=== PATIENT | female | born 1955 | race Caucasian/White ===

== ENCOUNTER → 2017-03-27 | Outpatient (CLI) | payer OTHER ==
[~2017-03-27] MED LIST: ARTIFICIAL TEA1 EACH OPHTHALMIC; BENADRYL25 MG PO; BENZTROPINE MES1 MG PO; CEFPODOXIME PR200 M1 PO; COLACE100 MG PO; ESKALITH300 MG PO; FERRIC X-150150 MG PO; FISH OIL 1,001000 M2 PO; FLUPHENAZINE 5 M5 MG PO; KAPSPARGO SPRIN25 MG PO; MILK OF MA2400 MG/10 PO; NITROFURANTOIN100 MG PO; PEPTO-BISM262 MG/15 PO; PROTONIX40 M1 PO; TOPROL XL25 MG PO; TYLENOL325 M1 PO; VITAMIN D3400 UNIT PO
== END ==
LOC: M.CRD 03-25 08:00 → M.RAD 13:18 → M.NUC 14:00
DX: M95.4 Acquired deformity of chest and rib (principal)

== ENCOUNTER → 2017-04-03 | Outpatient (CLI) | payer OTHER ==
--- NOTE | 2017-04-03 16:23 | CARDNUC ---
[place] [address] CARDIAC NUCLEAR IMAGING REPORT Name: SCHNEIDERMERY POLANCO Room: [facility]#: [id number] Admission: 04/03/17 Attend Phys: Jerardo Maynard, Discharge: Date of : 53 Date of Service: 04/03/17 1623 Report #: [id number] THIS REPORT FOR: //name// APPROVED REPORT Exam: Nuclear Stress Test Indication: Dyspnea, blood clots in leg Patient Location: Out-Patient Stress Tech: Gertrude Greco Stress Nurse: Becki Anaya RN Ht: 5 ft 4 in Wt: 176 lbs BSA: 1.85 m2 BMI: 30.20 Medical History Medical History: htn, paranoid schizophrenia, gerd, arf, breast cancer Medications: metoprolol,xaralto, Allergies: latex, tegretol Stress Test Details Stress Test: Pharmacologic stress testing performed using 0.4 mg of regadenoson per 5 mL given IV over 10 seconds. Reason for pharmacologic stress test: physical limitation. HR Resting HR: 91 bpm Max Heart Rate (APMHR): 158 bpm Max HR Achieved: 108 bpm Target HR (85% APMHR): 134 bpm % of APMHR: 68 Recovery HR: 118 bpm HR response to stress: Normal HR response to stress BP Resting BP: 144/113 mmHg Max BP: 147/68 mmHg BP response to stress: Normal blood pressure response to stress. ECG Resting ECG: Sinus Rhythm Stress ECG: Sinus Rhythm ST Change: None Recovery ECG: Sinus Rhythm Recovery ST Change: [place] [address] CARDIAC NUCLEAR IMAGING REPORT Name: MERY SCHNEIDER Room: [facility]#: [id number] Admission: 04/03/17 Attend Phys: Jerardo Maynard, Discharge: Date of : 53 Date of Service: 04/03/17 1623 Report #: [id number] Clinical Reason for Termination: Completed protocol Stress Symptoms: Dyspnea Exercise duration: 0 min sec Exercise capacity: 1 METs Functional Aerobic Impairment 69% Nurse Comments pt tolerated well Stress ECG Conclusion negative for ischemia NM EXAM: Myocardial Perfusion REST/STRESS Imaging Protocol: Rest Tc-99m/Stress Tc-99m 1 day Resting Data Rest SPECT myocardial perfusion imaging was performed in supine position 45 minutes following the intravenous injection of 11.1 mCi of Tc-99m Sestamibi. Time of rest injection: 1250 Date: 04/03/2017 The images were gated to evaluate regional wall motion and calculate left ventricular ejection fraction. Administration Route: IV Administration Site: Right AC Pharmacologic Stress Pharmacologic stress test was performed by injecting Regadenoson 0.4 mg IV push followed by the intravenous injection of 36 mCi of Tc-99m Sestamibi. Time of stress injection: 1420 Date: 04/03/2017 Administration Route: IV Administration Site: Right AC Gated Stress SPECT was performed 45 minutes after stress injection. The images were gated to evaluate regional wall motion and calculate left ventricular ejection fraction. Study Quality Study: Fair Artifact: Moderate Motion artifact,gut uptake artifact Study Data At rest, the left ventricular ejection fraction was >65%.. Post stress, the left ventricular ejection was >65%.. SSS: 2 [place] [address] CARDIAC NUCLEAR IMAGING REPORT Name: MERY SCHNEIDER Room: [facility]#: [id number] Admission: 04/03/17 Attend Phys: Jerardo Maynard, Discharge: Date of : 53 Date of Service: 04/03/17 1623 Report #: [id number] SRS: 5 SDS: -3 there are 2 small defects seen on rotating images likely extratraneous to patient.seen only on stress dataset. Perfusion There is a uniform uptake of tracer on the stress data sent, resting images show a lot of artifact due to gut uptake and motion artifact. No reversible defects are seen Images were reviewed using [employer]. Wall Motion There is normal thickening in all segments Nuclear Conclusion ECG Findings: negative for ischemia Clinical Findings: negative for ischemia Nuclear Findings: negative for ischemia Exercise Capacity: not assessed Left Ventricular Function: normal Risk Study: low Although the study has artifact, features of ischemia are not present <Conclusion> negative for ischemia <ELECTRONICALLY SIGNED> By: Selwyn Vargas MD, FACC 04/03/17 1623 162 162 Selwyn Vargas MD, FACC /INF
--- NOTE | 2017-04-03 17:12 | 2DMMODE ---
[place] [address] 2 D/M-MODE ECHOCARDIOGRAM Name: MERY SCHNEIDER Room: [facility]#: [id number] Admission: 04/03/17 Attend Phys: Jerardo Maynard, Discharge: Date of : 53 Date of Service: 04/03/17 1712 Report #: [id number] THIS REPORT FOR: //name// APPROVED REPORT Study performed: 04/03/2017 15:35:12 EXAM: Comprehensive 2D, Doppler, and color-flow Echocardiogram Patient Location: Out-Patient Status: routine BSA: 1.85 HR: 94 bpm BP: 159/62 mmHg Rhythm: NSR Other Information Study Quality: Good Indications Dyspnea 2D Dimensions LVEF(%): 84.61 (>50%) IVSd: 10.23 (7-11mm) LVOT Diam: 19.78 (18-24mm) LVDd: 37.99 mm PWd: 8.77 (7-11mm) Ascending Ao: 29.82 (22-36mm) LVDs: 17.86 (25-40mm) Aortic Root: 26.82 mm Garcia's LVEF: 84.61 % Volumes Left Atrial Volume (Systole) LA ESV Index: 15.20 mL/m2 Aortic Valve AoV Peak Shaan.: 1.46 m/s AO Peak Gr.: 8.53 mmHg LVOT Max P.30 mmHg AO Mean Gr.: 4.77 mmHg LVOT Mean P.84 mmHg LVOT Max V: 1.52 m/s AO V2 VTI: 28.29 cm LVOT Mean V: 1.03 m/s TRINITY (VTI): 3.11 cm2 LVOT V1 VTI: 28.63 cm Mitral Valve E/A Ratio: 0.82 [place] [address] 2 D/M-MODE ECHOCARDIOGRAM Name: MERY SCHNEIDER Room: [facility]#: [id number] Admission: 04/03/17 Attend Phys: Jerardo Maynard, Discharge: Date of : 53 Date of Service: 04/03/17 1712 Report #: [id number] MV Decel. Time: 228.83 ms MV E Max Shaan.: 0.78 m/s MV PHT: 66.36 ms MVA (PHT): 3.32 cm2 TDI E/Lateral E': 5.57 E/Medial E': 6.50 Medial E' Shaan.: 0.12 m/s Lateral E' Shaan.: 0.14 m/s Pulmonary Valve PV Peak Shaan.: 1.21 m/s PV Peak Gr.: 5.83 mmHg Left Ventricle The left ventricle is normal size. There is normal LV segmental wall motion. There is normal left ventricular wall thickness. Left ventricular systolic function is normal. The left ventricular ejection fraction is within the normal range. LVEF is 65-70%. Grade I - abnormal relaxation pattern. Right Ventricle The right ventricle is normal size. The right ventricular systolic function is normal. Atria The left atrium size is normal. The right atrium size is normal. Aortic Valve The aortic valve is normal in structure. No aortic regurgitation is present. There is no aortic valvular stenosis. Mitral Valve The mitral valve is normal in structure. There is no mitral valve regurgitation noted. No evidence of mitral valve stenosis. Tricuspid Valve The tricuspid valve is normal in structure. Unable to assess PA pressure. Trace tricuspid regurgitation. Pulmonic Valve The pulmonary valve is normal in structure. There is no pulmonic valvular regurgitation. Great Vessels The aortic root is normal in size. IVC [place] [address] 2 D/M-MODE ECHOCARDIOGRAM Name: MERY SCHNEIDER Room: [facility]#: [id number] Admission: 04/03/17 Attend Phys: Jerardo Maynard, Discharge: Date of : 53 Date of Service: 04/03/17 1712 Report #: [id number] collapses with >50% inspiration Pericardium There is no pericardial effusion. <Conclusion> LVEF is 65-70%. There is normal LV segmental wall motion. Grade I - abnormal relaxation pattern. There is no aortic valvular stenosis. No aortic regurgitation is present. There is no mitral valve regurgitation noted. No evidence of mitral valve stenosis. <ELECTRONICALLY SIGNED> By: Selwyn Vargas MD, FACC 04/03/171711 11 11 Selwyn Vargas MD, FACC /INF
== END ==
LOC: M.CRD 03-25 08:00 → M.NUC 12:21 → M.CRD 14:00
DX: I82.409 Acute embolism and thrombosis of unspecified deep veins of unspecified lower extremity (principal); I10 Essential (primary) hypertension; F20.0 Paranoid schizophrenia; K21.9 Gastro-esophageal reflux disease without esophagitis; Z85.3 Personal history of malignant neoplasm of breast; Z87.448 Personal history of other diseases of urinary system

== ENCOUNTER 2017-12-24 21:28 | Inpatient (IN) | payer OTHER ==
[~2017-12-24] VITALS: Ht 162.6 cm; Wt 74.4 kg
[2017-12-24 20:00] VITALS: BP 106/79
[2017-12-25] VITALS: BP 120/46
[2017-12-25 04:00] VITALS: BP 145/77
[2017-12-25 04:44] LABS: HEMATOCRIT 28.6 % (37.0-47.0); HEMOGLOBIN 9.3 gm/dL (12.0-15.0); MCH 30.8 pg (26.0-34.0); MCHC 32.5 g/dL (28.0-37.0); MCV 94.7 fL (80.0-100.0); NUCLEATED RBCS 0 /100WBC; PLATELET COUNT* 254 thou/uL (150-400); RBC 3.02 mil/uL (4.20-5.00); RDW-CV 14.1 % (10.5-14.5)
[2017-12-25 05:01] LABS: ALBUMIN 3.3 g/dL (3.4-5.0); CALCIUM 8.9 mg/dL (8.5-10.1); CREATININE 1.8 mg/dL (0.6-1.3); POTASSIUM 4.1 mmol/L (3.5-5.1); TOTAL BILIRUBIN 0.3 mg/dL (<0.1-1.0); TOTAL PROTEIN 6.5 g/dL (6.4-8.2)
--- NOTE | 2017-12-25 05:33 | NUR ---
PT DEL[facility] AROUND 2044. ASSESSMENT COMPLETED CHARTED. PT DOESNT KNOW ALL MEDICATIONS SHE TAKES AT THIS TIME. ABLE TO MAKE NEEDS KNOWN. AROUND MIDNIGHT CHECKED TEMP AND WAS 104.3, GAVE TYLENOL PER P.O. RECHECKED AND WAS 99.2. STARTED IVF PER EMAR. PT RESTING IN BED AT THIS TIME. WILL CONTINUE TO MONITOR.
[2017-12-25 05:50] LABS: ABSOLUTE LYMPHOCYTES 0.2 thou/uL (0.8-5.3); ABSOLUTE MONOCYTES 0.1 thou/uL (0.0-1.2); ABSOLUTE NEUTROPHILS 7.7 thou/uL (1.6-8.1); PLATELET ESTIMATE ADEQUATE
[2017-12-25 05:51] LABS: ANISOCYTOSIS 1+; POIKILOCYTOSIS 1+
[2017-12-25 08:00] VITALS: BP 130/77
--- NOTE | 2017-12-25 11:43 | NUR ---
CM went in to assess Pt, Pt requested that CM come back later, stating "I'm too tired to talk right now."
[2017-12-25 12:00] VITALS: BP 82/50
[2017-12-25 12:38] LABS: APTT 31.1 Seconds (25.0-31.3); INR 1.1; MAGNESIUM 2.1 mg/dL (1.8-2.4); PROTIME 11.2 Seconds (9.20-11.50)
[2017-12-25 12:45] LABS: % SATURATION 2 % (20-39); IRON < 5 ug/dL (50-175)
--- NOTE | 2017-12-25 15:11 | NUR ---
VSS, ASSUMED CARE IN THE AM, ASSESSMENT PERFORMED AND CHARTED, FALL PRECAUTIONS IN PLACE AND CALL LIGHT IN REACH, PT IS A&O2 UP WITH ONE, ON RA AND IS TRACING SR ON THE MONITOR. PT DENIES ANY PAIN AND HER GOAL IS TO IMPROVE MENTATION AND SIT UP IN CHAIR, WILL FOLLOW WITH CARE,
--- NOTE | 2017-12-25 15:56 | CON ---
[address] [address] CONSULTATION Name: MERY SCHNEIDER Room: [address] IN [facility]#: [id number] Admission: 12/24/17 Attend Phys: Jin Salinas Discharge: Date of : 53 Report #: [id number] THIS REPORT FOR: //name// CC: Yonatan Buitrago DATE OF SERVICE: 12/25/2017 INFECTIOUS DISEASE CONSULTATION ATTENDING PHYSICIAN: Dr. Dio Buitrago. REASON FOR EVALUATION: Febrile illness, possibly complicated urinary tract infection. HISTORY OF PRESENT ILLNESS: Chart reviewed, patient examined. This is a 62-year-old woman with schizophrenia, previous known history of hypertension, left mastectomy, who was at the local tanker truck driver's office apparently for having her toenails clipped; however, was noted to have a temperature in excess of 104 degrees Fahrenheit. She was referred. In addition to that, she was shaking. Difficult to ascertain any history at this point or degree of disability. She is unable to give too many of the details. Evaluation is in progress. Chest x-ray was otherwise unremarkable. Urinalysis is pending. White count was normal. Her creatinine is elevated at 1.8. She was empirically started on ceftriaxone. ALLERGIES: DEPAKOTE. CURRENT MEDICATIONS: Include promethazine, ceftriaxone, ondansetron and acetaminophen. PAST MEDICAL HISTORY: As above, hypertension, she does have schizophrenia. SOCIAL HISTORY: Nonsmoker, no ethanol. FAMILY HISTORY: Noncontributory. REVIEW OF SYSTEMS: Not reliably obtained. She denies any significant pulmonary complaints. She has not had abdominal pain. PHYSICAL EXAMINATION: GENERAL: Uopq-gq-brjlasdl distress, somewhat anxious, appears fairly well nourished. VITAL SIGNS: Temperature 98, pulse 90, respirations 18, blood pressure 130/77. SKIN: Warm, dry. [place]: [place] [address] CONSULTATION Name: MERY SCHNEIDER Room: [address]#: [id number] Admission: 12/24/17 Attend Phys: Jin Salinas Discharge: Date of : 53 Report #: [id number] NECK: Supple. LUNGS: Otherwise, clear. HEART: Regular. ABDOMEN: Soft. There are no peritoneal signs. GENITOURINARY AND RECTAL: Deferred. LABORATORY DATA: Chest x-ray as described above. CBC: White count of 8.0, H and H 9.3 and 28.6, platelets of 254. Electrolytes: Sodium 141, potassium 4.1, chloride 110, bicarbonate is 22, anion gap of 9, BUN and creatinine 24 and 1.8. LFTs unremarkable. Albumin of 3.3. Total protein 6.5. Estimated GFR is 28. ASSESSMENT: Febrile illness, difficult to ascertain whether the shakes were due to true rigors or something else, there is question of possible infectious etiology certainly given the high temperature, there is no evidence she has got malignant hyperthermia at this point, she is afebrile. We will check blood cultures, go ahead and get a streptococcal urinary antigen, rapid MRSA, influenza to ascertain; although considering urinary tract infection, there is no evidence on urinalysis that has been collected thus far and certainly may be the case as well. We will see how she does and we will follow her clinically. <ELECTRONICALLY SIGNED> By: Julián Dietrich MD 12/25/17 1556 1045 1300Joseroscoe Dietrich MD /nt
[2017-12-25 16:06] VITALS: BP 140/73
[2017-12-25] MEDS ORDERED: ESKALITH300 MG PO (16:27)
[2017-12-25] MEDS ORDERED: FLUPHENAZINE 5 M5 MG PO ×2 (16:27→20:31)
[2017-12-25] MEDS ORDERED: KAPSPARGO SPRIN25 MG PO (16:28)
[2017-12-25] MEDS ORDERED: PROTONIX40 M1 PO ×2 (16:28→20:32)
[2017-12-25] MEDS ORDERED: BENZTROPINE MES1 MG PO (16:29)
[2017-12-25] MEDS ORDERED: NITROFURANTOIN100 MG PO (16:31)
--- NOTE | 2017-12-25 18:30 | NUR ---
VSS, PT IS IN BED, SHE IS CONFUSED ALERT TO SELF AND PLACE, PT DENIES ANY PAIN, SHE IS IMPULSIVE, UP WITH ONE AND AND IS TRACING ST ON THE MONITOR ART THIS TIME, WILL FOLLOW WITH PLAN OF CARE AND HOURLY ROUNDS,
[2017-12-25] MEDS ORDERED: BENADRYL25 MG PO (20:28)
[2017-12-25] MEDS ORDERED: TYLENOL325 M1 PO (20:28)
[2017-12-25] MEDS ORDERED: MILK OF MA2400 MG/10 PO (20:29)
[2017-12-25] MEDS ORDERED: FISH OIL 1,001000 M2 PO (20:29)
[2017-12-25] MEDS ORDERED: COLACE100 MG PO (20:29)
[2017-12-25 20:30] VITALS: BP 143/85
[2017-12-25] MEDS ORDERED: TOPROL XL25 MG PO (20:31)
[2017-12-25] MEDS ORDERED: VITAMIN D3400 UNIT PO (20:32)
[2017-12-26] VITALS: BP 141/76
[2017-12-26] MEDS ORDERED: FISH OIL 1,001000 M2 PO (00:16)
[2017-12-26] MEDS ORDERED: PEPTO-BISM262 MG/15 PO (00:16)
[2017-12-26] MEDS ORDERED: ARTIFICIAL TEA1 EACH OPHTHALMIC (00:17)
[2017-12-26 01:19] LABS: URINE BILIRUBIN NEGATIVE (Negative); URINE BLOOD 1+ (Negative); URINE CLARITY CLEAR; URINE COLOR STRAW; URINE GLUCOSE-RANDOM NEGATIVE (Negative); URINE KETONES NEGATIVE (Negative); URINE LEUKOCYTES-REFLEX NEGATIVE (Negative); URINE NITRITE-REFLEX NEGATIVE (Negative); URINE PROTEIN NEGATIVE (Negative); URINE SPECIFIC GRAVITY <= 1.005 (1.005-1.030); URINE UROBILINOGEN 0.2 E.U./dl (0.2-1.0)
[2017-12-26 02:33] LABS: CASTS None Seen /LPF (None Seen); SQUAMOUS 0-3 Few /LPF (0-3); URINE RBC 0-2 Rare /HPF (0-2); URINE WBC-REFLEX None Seen /HPF (0-5)
[2017-12-26 02:34] LABS: BACTERIA-REFLEX None Seen /HPF (None Seen); CRYSTALS None Seen /LPF (None Seen)
[2017-12-26 04:00] VITALS: BP 155/82
[2017-12-26 05:44] LABS: HEMATOCRIT 26.8 % (37.0-47.0); HEMOGLOBIN 8.7 gm/dL (12.0-15.0); MCHC 32.6 g/dL (28.0-37.0); MPV 8.5 fl. (7.2-11.1); RBC 2.82 mil/uL (4.20-5.00); RDW-CV 13.6 % (10.5-14.5); WBC 6.8 thou/uL (4.0-11.0)
--- NOTE | 2017-12-26 06:03 | NUR ---
Assumed care of patient at 1930. Full assessment completed and documented; hourly rounding performed for patient safety. Patient oriented to self and place; she is impulsive. Bed alarms on at all times. SR-ST noted on telemetry. All VSS. Right FA IVL intact and patent. Patient slept well throughout the night. Fall precautions in place; call light within patient's reach. Will continue to monitor.
[2017-12-26 06:12] LABS: ALBUMIN 3.2 g/dL (3.4-5.0); CALCIUM 9.5 mg/dL (8.5-10.1); CREATININE 1.7 mg/dL (0.6-1.3); MAGNESIUM 2.2 mg/dL (1.8-2.4); POTASSIUM 4.1 mmol/L (3.5-5.1); TOTAL BILIRUBIN 0.2 mg/dL (<0.1-1.0); TOTAL PROTEIN 6.4 g/dL (6.4-8.2)
--- NOTE | 2017-12-26 07:30 | NUR ---
ASSUMED CARE OF PT ASSESSED AND DOCUMENTED. PT ON CARDIAC MONITER TRACING SR HR 85. PT IS A&O WTH NO C/O PAIN. VSS WNL. PT IS AFEBRILE. WM.
[2017-12-26 08:00] VITALS: BP 135/70
[2017-12-26 11:41] VITALS: BP 138/67
--- NOTE | 2017-12-26 13:45 | NUR ---
MET WITH PT AND SPOKE WITH MOTHER WASHINGTON SCHNEIDER OVER THE PHONE. [place] IS PT'S GUARDIAN, COPY OF PAPERS ON CHART. PT LIVES IN [facility] [phone]. PER W[place], PT DOES WELL THERE. IS INDEPENDENT WITH ADLS. USES NO EQUIPMENT. PLAN IS FOR HER TO [place] THERE AT [place] AND [place] CAN PROVIDE TRANSPORTION. SHE ASKED THAT SHE BE CALLED FOR 'ANYTHING' OF CONCERN. WILL FOLLOW
[2017-12-26 15:34] VITALS: BP 143/68
--- NOTE | 2017-12-26 17:15 | NUR ---
PT HAS RESTED IN HER ROOM SLEEPING AND WATCHING TV. SHE HAS SPOKEN WITH HER BOYFRIEND SEVERAL TIMES ON THE PHONE. HER MOTHER WAS UP TO VISIT AND CHECK ON DAUGHTERS MEDICATIONS. PT IS PROBABLE TO D/C BACK TO [facility] TOMORROW. MOTHER WOULD LIKE FOR HER TO GO BY CAR.
[2017-12-26 20:30] VITALS: BP 141/83
[2017-12-27] VITALS: BP 126/74
[2017-12-27 04:00] VITALS: BP 127/75
[2017-12-27 04:47] LABS: HEMATOCRIT 27.8 % (37.0-47.0); HEMOGLOBIN 9.3 gm/dL (12.0-15.0); MCH 31.3 pg (26.0-34.0); MCHC 33.4 g/dL (28.0-37.0); MCV 93.8 fL (80.0-100.0); MPV 8.4 fl. (7.2-11.1); RBC 2.97 mil/uL (4.20-5.00); RDW-CV 13.8 % (10.5-14.5); WBC 7.5 thou/uL (4.0-11.0)
[2017-12-27 05:00] LABS: CALCIUM 9.4 mg/dL (8.5-10.1); CREATININE 1.7 mg/dL (0.6-1.3); MAGNESIUM 2.5 mg/dL (1.8-2.4); POTASSIUM 4.2 mmol/L (3.5-5.1)
--- NOTE | 2017-12-27 06:27 | NUR ---
Assumed care of patient at 1930. Full assessment performed and documented; hourly rounding completed for patient safety. Patient slept well throughout the night. She is still impulsive and attempts to get out of bed by herself. Fall precautions in place and bed alarm on at all times. SR with PVCs noted on telemetry. All VSS. Right FA IVL intact and patent. Patient is hopeful that she will be able to go home today. Call light within patient's reach. Will continue to monitor.
--- NOTE | 2017-12-27 07:15 | NUR ---
ASSUMED CARE OF PT ASSESSED AND DOCUMENTED. PT ON CARDOAC MONITER TRACING SR PVC'S HR 98. PT IS A&O AND FORGETFUL. VSS WNL. PT IS AFEBRILE. SHE REMAINS ON 2L OF O2. FALL PRECAUTIONS IN PLACE PER FACILITY PROTOCOL. ENCOURAGED USE OF INCENTIVE SPIROMETER. SEARS HAS TEA COLORED URINE. CALL LIGHT IN REACH. PT STILL NOT PASSING GAS. WM.
--- NOTE | 2017-12-27 07:30 | NUR ---
ASSUMED CARE OF PT ASSESSED AND DOCUMENTED. PT IS ON CARDIAC MONITER TRACING SR HR 82. PT IS A&O WITH NO C/O PAIN. PT IS AFEBRILE. SHE IS ON ROOM AIR. BED IN LOW POSITION CALL LIGHT IS IN REACH. WM.
[2017-12-27 08:00] VITALS: BP 154/90
[2017-12-27 12:00] VITALS: BP 143/98
--- NOTE | 2017-12-27 13:31 | NUR ---
PTS ROBERTO IS HER MOTHER. SHE REQUESTED I CALL THE DOCTOR. SHE DOES NOT WANT TO DRIVE HER DAUGHTER HOME LATE. SENT YOU CALL TO HE RETURNED CALL AND WILL BE HERE IN APPROX 20 MIN. LET PTS MOTHER KNOW.
[2017-12-27] MEDS ORDERED: FERRIC X-150150 MG PO (14:13)
[2017-12-27] MEDS ORDERED: CEFPODOXIME PR200 M1 PO (14:24)
[2017-12-27 14:30] VITALS: BP 154/90
--- NOTE | 2017-12-27 15:02 | NUR ---
PT D/C'D TO HOME. PTS MOTHER IS DPOA AND WAS NOT HAPPY HAVING TO WAIT ON PAPERWORK. EVERYONE WORKED TOGETHER TO EXPIDITE DISCHARGE INCLUDING DOC AND PROCESS OPERATOR. CALLED AND LEFT MESSAGE FOR DR ZELAYA REGARDING DISCHARGE. EDUCATION GIVEN RE FOLLOW-UPS, MEDICATIONS, AND DR ZAKIYA. D/C'D IV AND CARDIAC MONITER. PTS MOTHER NOT HAPPY WITH EDUCATION ON ACETIMINOPHEN AND STROKE. SHE WAS NOT INTERESTED IN REVIEWING MEDICATIONS. ALL BELONGINGS PACKED UP AND LEFT WITH PT ACCOMPANIED BY STAFF AND MOTHER.
== END 2017-12-27 15:28 | disposition home or self-care (01) | DRG 871 ==
LOC: M.2W 21:28
PROVIDERS: Family Medicine; ADMIT Internal Medicine
DX: A41.9 Sepsis, unspecified organism (principal); N17.0 Acute kidney failure with tubular necrosis; N39.0 Urinary tract infection, site not specified; F20.0 Paranoid schizophrenia; I10 Essential (primary) hypertension; K56.41 Fecal impaction; E87.8 Other disorders of electrolyte and fluid balance, not elsewhere classified; D50.9 Iron deficiency anemia, unspecified; Z28.21 Immunization not carried out because of patient refusal; Z88.8 Allergy status to other drugs, medicaments and biological substances; Z90.12 Acquired absence of left breast and nipple; Z85.3 Personal history of malignant neoplasm of breast; Z79.899 Other long term (current) drug therapy

== ENCOUNTER → 2018-10-28 | Outpatient (CLI) | payer OTHER | LOC: M.ULTRA 10-12 10:30 | DX: N28.1 Cyst of kidney, acquired (principal); I12.9 Hypertensive chronic kidney disease with stage 1 through stage 4 chronic kidney disease, or unspecified chronic kidney disease; N18.4 Chronic kidney disease, stage 4 (severe) ==